=== PATIENT | female | born 1990 | race Caucasian/White ===

== ENCOUNTER 2022-06-28 15:40 | Emergency (ER) | payer OTHER, SELFPAY ==
[2022-06-28 15:48] VITALS: BP 138/82; PULSE 85; RESP 20; TEMP 36.7; O2SAT 97
--- NOTE | 2022-06-28 15:51 | ED.FEMALEGU ---
HPI - Female Genitourinary General Chief complaint: Urogenital-Female Stated complaint: poss Uti History of Present Illness HPI Narrative: PATIENT PRESENTS WITH BURNING WITH URINATION AND LOW BACK PAIN NO FLANK PAIN AND NO PELVIC PAIN NO GROSS HEMATURIA AND NOT VAGINAL DISCHARGE. WOULD LIKE STD TESTED SINCE SHE IS HERE. NO KNOWN EXPOSURE. Related Data Home Medications Medication Instructions Recorded Confirmed pantoprazole 20 mg tablet,delayed mg PO 06/28/22 release venlafaxine 75 mg capsule,extended mg PO 06/28/22 release 24 hr Allergies Allergy/AdvReac Type Severity Reaction Status Date / Time pseudoephedrine Allergy Rash Verified 06/28/22 15:59 Review of Systems Review of Systems: CONSTITUTIONAL: DENIES FEVER, CHILLS, OR SWEATS. EYES: DENIES VISUAL CHANGES, REDNESS, OR DISCHARGE. ENT: DENIES RHINORRHEA, CONGESTION, SORE THROAT, OR OTALGIA. CARDIOVASCULAR: DENIES CHEST PAIN, PALPITATIONS, OR EDEMA. RESPIRATORY: DENIES COUGH OR DYSPNEA. GASTROINTESTINAL: DENIES ABDOMINAL PAIN, NAUSEA, VOMITING, OR DIARRHEA. GENITOURINARY: DENIES DYSURIA OR HEMATURIA. SKIN: DENIES RASH OR ITCHING. MUSCULOSKELETAL: DENIES BACK PAIN, JOINT PAIN, OR MYALGIA. NEUROLOGIC: DENIES HEADACHE, NUMBNESS, OR WEAKNESS. PSYCHIATRIC: DENIES ANXIETY OR DEPRESSION. PMFSH Comments AT TIME OF SIGNATURE, AGREE WITH NURSING PAST MEDICAL, SURGICAL, SOCIAL AND FAMILY HISTORY. THERE IS NO RELEVANT FAMILY HISTORY PERTINENT TO THE PRESENTING COMPLAINT Exam Narrative: GENERAL: WELL-APPEARING, WELL-NOURISHED, AND IN NO ACUTE DISTRESS. HEAD: NORMOCEPHALIC, ATRAUMATIC. EYES: PERRLA AND EOMI. ENT: NARES CLEAR, NO RHINORRHEA OR EPISTAXIS. MUCOUS MEMBRANES MOIST. NECK: SUPPLE. CHEST: CLEAR TO AUSCULTATION. NO RESPIRATORY DISTRESS. HEART: REGULAR RATE AND RHYTHM. NO MURMUR HEARD. NORMAL PERIPHERAL PULSES. ABDOMEN: SOFT, NONTENDER, NONDISTENDED, NORMAL ACTIVE BOWEL SOUNDS. EXTREMITIES: NORMAL RANGE OF MOTION. NO EDEMA. SKIN: WARM, DRY, NO RASH. NEURO: NO FOCAL DEFICITS. ALERT AND ORIENTED X3. CRISTINA COMA SCALE EYE OPENING: SPONTANEOUS 4 CRISTINA COMA SCALE MOTOR: OBEYS COMMANDS 6 CRISTINA COMA SCALE VERBAL: ORIENTED 5 CRISTINA COMA SCALE TOTAL 15 Course Course Level of Care: Express Care Visit Vital Signs Vital signs: Vital Signs Temperature 36.7 C 06/28/22 15:48 Pulse Rate 85 06/28/22 15:48 Respiratory Rate 20 06/28/22 15:48 Blood Pressure 138/82 06/28/22 15:48 Pulse Oximetry 97 06/28/22 15:48 Oxygen Delivery Room Air 06/28/22 15:48 Temperature 36.7 C 06/28/22 15:59 Pulse Rate 85 06/28/22 15:59 Respiratory Rate 20 06/28/22 15:59 Blood Pressure 138/82 06/28/22 15:59 Pulse Oximetry 97 06/28/22 15:59 Oxygen Delivery Room Air 06/28/22 15:59 MDM - Female Genitourinary Differential Diagnosis Differential diagnosis: Likely urinary tract infection, bacterial vaginosis, trichomoniasis, cervicitis, ovarian cyst, vaginitis, ruptured ovarian cyst, cyst of Bartholin's gland and cystitis Lab Data Labs: Urine Glucose Trace Reference Range: Negative Urine Bilirubin 1+ Reference Range: Negative Urine Ketone Trace Reference Range: Negative Urine Specific [place] 1.015 Reference Range:1.001-1.035 Urine Blood 2+ Reference Range: Negative * * Urine pH 5.0 Reference Range: 5.0-9.0 Urine Protein 3+ Reference Range: Negative Urine Urobilinogen 2.0
[2022-06-28 15:59] VITALS: BP 138/82; PULSE 85; RESP 20; TEMP 36.7; O2SAT 97
== END 2022-06-28 16:22 | disposition home or self-care (01) ==
PROVIDERS: Emergency Provider Nurse Practitioner Family
DX: R30.0 Dysuria (principal); Z11.3 Encounter for screening for infections with a predominantly sexual mode of transmission; K21.9 Gastro-esophageal reflux disease without esophagitis
CPT/HCPCS: 81003; 87086; 87088; 87491; 87591; 87661; 99214; G0463

== ENCOUNTER 2022-12-17 11:43 | Emergency (ER) | payer BC, SELFPAY ==
[2022-12-17 11:50] VITALS: BP 113/83; PULSE 76; RESP 18; TEMP 36.8; O2SAT 100
--- NOTE | 2022-12-17 12:18 | ED.SKABFB ---
HPI - Skin/Abscess/Foreign Bdy General Chief complaint: Wound/Laceration Stated complaint: Left Arm Bee Sting,Nausea Time Seen by Provider: 12/17/22 12:22 Source: patient, RN notes reviewed and old records reviewed Mode of arrival: ambulatory Limitations: no limitations History of Present Illness HPI narrative: 32 year old female who presents to [facility] care with complaints of bee sting to her left upper arm which occurred on Thursday 3 days ago which has some surrounding redness and itching. Patient reports that she felt nauseated,dizzy and a lightheaded at work today and thought maybe she was having an allergic reaction to the bee sting. Patient denies any present feelings of dizziness or of being lightheaded, denies any trouble with her breathing orwith swallowing. Patient states that she has taken 2 doses of Benadryl 50 mg since she was stung. complaint: insect bite/sting Onset (ago): day(s) (3 days ago) Severity scale (1-10): 3 Quality: aching and pruritic Treatments prior to arrival: Benadryl (50 mg X 2) Related Data Home Medications Medication Instructions Recorded Confirmed venlafaxine 75 mg capsule,extended 75 mg PO DAILY 06/28/22 12/17/22 release 24 hr Allergies Allergy/AdvReac Type Severity Reaction Status Date / Time pseudoephedrine Allergy Rash Verified 06/28/22 15:59 Review of Systems Review of Systems: CONSTITUTIONAL: Denies fever, chills, or sweats. EYES: Denies visual changes, redness, or discharge. ENT: Denies rhinorrhea, congestion, sore throat, or otalgia. CARDIOVASCULAR: Denies chest pain, palpitations, or edema. RESPIRATORY: Denies cough or dyspnea. GASTROINTESTINAL: Denies abdominal pain,stated some nausea earlier today none at present,no vomiting, or diarrhea. GENITOURINARY: Denies dysuria or hematuria. SKIN: Denies rash or itching. bee sting to left upper medial arm with surrounding light redness and mild swelling no warm to tissue or any weeping,is itchy MUSCULOSKELETAL: Denies back pain, joint pain, or myalgia. NEUROLOGIC: Denies headache, numbness, or weakness.reports episode earlier today of feeling dizzy and lightheaded none at present time. PSYCHIATRIC: Denies anxiety or depression. All systems reviewed & are unremarkable except as noted in HPI and below PMFSH Past Medical History Medical History (Updated 12/19/22 @ 13:40 by Kimberley Winston NP) Depression GERD (gastroesophageal reflux disease) UTI (urinary tract infection) Surgical History Surgical History (Updated 12/19/22 @ 13:36 by Kimberley Winston NP) H/O: hysterectomy Social History Social History (Updated 12/19/22 @ 13:40 by Kimberley Winston NP) Smoking status: Never smoker Alcohol intake: current Alcohol use details: social Substance use type: does not use Gender identity (if verbalized by the patient): Female Comments At time of signature, agree with nursing past medical, surgical, social and family history. There is no relevant family history pertinent to the presenting complaint Exam Narrative: GENERAL: Well-appearing, well-nourished, and in no acute distress. HEAD: Normocephalic, atraumatic. EYES: PERRLA and EOMI. ENT: Nares clear, no rhinorrhea or epistaxis. Mucous membranes moist. NECK: Supple.no lymphadenopathy CHEST: Clear to auscultation. No respiratory distress.SAO2 100% on room air HEART: Regular rate and rhythm. No murmur heard. Normal peripheral pulses. ABDOMEN: Soft, nontender, nondistended, normal active bowel sounds. EXTREMITIES: Normal range of motion. No edema. SKIN: Warm, dry, no rash. area of light red skin surrounding bee sting site on left medial upper arm measuring 6cmX 7cm with some minimal swelling no acute warmth reports some pruritus. NEURO: No focal deficits. Alert and oriented x3.denies any dizziness or feelings of lightheadedness at this time. Course Course Emergency Course: Patient is aware of diagnosis, understands and agrees to treatment plan.? Antici
== END 2022-12-17 12:46 | disposition home or self-care (01) ==
PROVIDERS: Emergency Provider Registered Nurse
DX: T63.441A Toxic effect of venom of bees, accidental (unintentional), initial encounter (principal); K21.9 Gastro-esophageal reflux disease without esophagitis; F32.A Depression, unspecified
CPT/HCPCS: 99213; G0463